=== PATIENT | male | born 1940 | race Caucasian/White ===

== ENCOUNTER 2022-04-28 13:01 | Emergency (ER) | payer MEDICARE, OTHER ==
[~2022-04-28] VITALS: Ht 170.2 cm; Wt 98.0 kg
[2022-04-28 13:08] VITALS: BP 127/76
[2022-04-28] MEDS ORDERED: TETANUS/DIPHTHERIA TOXOID [ADULT] 0.5 ML VIAL IM ONE (15:00)
[2022-04-28] MEDS ORDERED: CEPH500B PO (15:03)
== END 2022-04-28 15:28 | disposition home or self-care (01) ==
LOC: EDH 13:01
DX: S61.012A Laceration without foreign body of left thumb without damage to nail, initial encounter (principal); I10 Essential (primary) hypertension; E11.9 Type 2 diabetes mellitus without complications; E78.00 Pure hypercholesterolemia, unspecified; W27.4XXA Contact with kitchen utensil, initial encounter; Y93.89 Activity, other specified; Y92.89 Other specified places as the place of occurrence of the external cause; Y99.8 Other external cause status
CPT/HCPCS: 12002; 90471; 90714